=== PATIENT | female | born 1965 | race African-American/Black ===

== ENCOUNTER 2018-06-24 14:18 | Observation (INO) | payer BC, SELFPAY ==
[2018-06-24 14:50] LABS: #Basophils 0.1 thou/uL (0.0-0.2); #Eosinphils 0.2 thou/uL (0.0-0.7); #Lymphocytes 2.9 thou/uL (1.20-3.40); #Monocytes 0.4 thou/uL (0.11-0.59); #Neutrophils 2.5 thou/uL (1.40-6.50); %Basophils 1.4 % (0.0-1.0); %Eosinophils 3.4 % (0.0-10.0); %Lymphocytes 47.4 % (21.0-51.0); %Monocytes 7.2 % (0.0-10.0); %Neutrophils 40.6 % (42.0-75.0); Hemoglobin 13.5 g/dL (12.0-16.0); Mean Corpuscular HGB CONC 31.8 g/dL (32.0-36.0); Mean Corpuscular Hemoglobin 30.9 pg (27.0-31.0); Mean Corpuscular Volume 97.1 fL (78.0-98.0); Mean Platelet Volume 9.1 fL (7.4-10.4); Platelet Count 300 thou/uL (130-400); RBC Distribution Width 12.4 % (11.5-14.5); Red Blood Cell (RBC) Count 4.37 mill/uL (4.20-5.40); White Blood Cell (WBC) Count 6.1 thou/uL (4.8-10.8)
--- NOTE | 2018-06-24 15:02 | RAD ---
CHEST 1 VIEW: Date: 06/24/18 HISTORY: Chest pain. COMPARISON: 08/26/12. FINDINGS: Cardiac silhouette is magnified by projection. Pulmonary vasculature unremarkable. Mediastinum is mid line. No lobar consolidation or evidence of pneumothorax. potline monitor leads overlie the chest. IMPRESSION: No active cardiopulmonary abnormalities are demonstrated. POS: [facility]
[2018-06-24 15:10] LABS: ALT (SGPT) 14 U/L (8-55); AST (SGOT) 12 U/L (5-34); Albumin 3.6 g/dL (3.5-5.0); Alkaline Phosphatase 75 U/L (40-150); Anion Gap 11 mmol/L (10-20); BUN (Urea Nitrogen) 17 mg/dL (9.8-20.1); Bilirubin, Total 0.3 mg/dL (0.2-1.2); CK (CPK) 152 U/L (29-168); Calc. Creatinine Clearance 0 mL/min (70-130); Calcium 9.2 mg/dL (7.8-10.44); Carbon Dioxide 28 mmol/L (22-29); Chloride 105 mmol/L (98-107); Estimated GFR-MDRD 61; Globulin 3.6 g/dL (2.4-3.5); Glucose 150 mg/dL (70-105); Potassium 4.7 mmol/L (3.5-5.1); Protein, Total 7.2 g/dL (6.0-8.3); Sodium 139 mmol/L (136-145)
[2018-06-24 15:14] LABS: CKMB 2.7 ng/mL (0-6.6); Troponin I Less than 0.010 ng/mL (< 0.028)
[2018-06-24] MEDS ORDERED: Nitroglycerin 2% Ointment 1 INCH/1 GM Packet ONE (15:48)
[2018-06-24 18:53] LABS: Troponin I Less than 0.010 ng/mL (< 0.028)
[2018-06-24] MEDS ORDERED: Acetaminophen 325 MG TAB PO PRN (20:57)
[2018-06-24 21:10] LABS: Troponin I Less than 0.010 ng/mL (< 0.028)
[2018-06-24] MEDS ORDERED: hydrALAZINE 20 MG/ML VIAL SLOW IVP PRN (21:28)
[2018-06-24] MEDS ORDERED: Ondansetron PF 4 MG/2 ML Vial IVP PRN (21:28)
[2018-06-24] MEDS ORDERED: Acetaminophen 500 MG TAB PO PRN (21:28)
[2018-06-24] MEDS ORDERED: Ondansetron ODT 4 MG TAB PO PRN (21:28)
[2018-06-24 21:35] VITALS: BMI 30.7
[2018-06-24] MEDS ORDERED: Famotidine 20 MG TAB PO SCH (21:45)
[2018-06-24] MEDS ORDERED: Amlodipine 10 MG TAB PO SCH (22:30)
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
[2018-06-25 04:44] LABS: Anion Gap 7 mmol/L (10-20); BUN (Urea Nitrogen) 16 mg/dL (9.8-20.1); Calc. Creatinine Clearance 80 mL/min (70-130); Calcium 8.7 mg/dL (7.8-10.44); Carbon Dioxide 28 mmol/L (22-29); Cardiac Risk 6.7 (Less than 4.5); Chloride 107 mmol/L (98-107); Cholesterol 253 mg/dl (< 200 Desired); Estimated GFR-MDRD 64; Glucose 203 mg/dL (70-105); HDL Cholesterol 38 mg/dL (>60 Neg Risk); LDL Cholesterol, Calculated 183 mg/dL; Potassium 4.4 mmol/L (3.5-5.1); Sodium 138 mmol/L (136-145); Triglycerides 160 mg/dL (Less than 150)
[2018-06-25] MEDS ORDERED: Aspirin 325 MG TAB PO SCH (08:00)
[2018-06-25] MEDS ORDERED: Famotidine 20 MG TAB PO SCH (09:00)
[2018-06-25] MEDS ORDERED: Regadenoson 0.4 MG/5 ML SYRINGE ONE (10:25)
[2018-06-25 15:27] VITALS: BP 116/65; TEMP 98.4
--- NOTE | 2018-06-25 15:40 | NM ---
NUCLEAR MEDICINE CARDIAC STRESS TEST WITH EJECTION FRACTION: HISTORY: Chest pain. Hypertension. Diabetes. Dyslipidemia. COMPARISON: None. TECHNIQUE: Stress and rest was performed after the intravenous administration of 29 and 9 mCi technetium-99m, re spectively. FINDINGS: Normal left ventricular uptake of radiotracer. No scar or ischemia. Normal wall motion. Ejection fraction 68%. IMPRESSION: Normal nuclear medicine cardiac stress test and ejection fraction. POS: [facility]
[2018-06-25] MEDS ORDERED: Rosuvastatin 10 MG TAB PO SCH (21:00)
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
== END 2018-06-25 18:18 | disposition home or self-care (01) ==
LOC: ERS 14:18 → 2SW 16:30
PROVIDERS: ADMIT Family Medicine; ATTEND Family Medicine
DX: R07.89 Other chest pain (principal); E11.9 Type 2 diabetes mellitus without complications; E78.5 Hyperlipidemia, unspecified; I10 Essential (primary) hypertension; Z79.4 Long term (current) use of insulin; Z79.82 Long term (current) use of aspirin; Z79.899 Other long term (current) drug therapy
CPT/HCPCS: 36415; 36416; 71045; 78452; 80048; 80053; 80061; 82550; 82553; 84484; 85025; 93005; 93017; 94760; A9500; G0378; J2785

== ENCOUNTER 2018-06-30 14:58 | Outpatient (CLI) | payer BC | END 2018-06-30 14:59 | disposition home or self-care (01) | LOC: BICMAMMO 14:58 | PROVIDERS: ATTEND Internal Medicine | DX: Z12.31 Encounter for screening mammogram for malignant neoplasm of breast (principal) | CPT/HCPCS: 77063; 77067 ==

== ENCOUNTER 2018-08-01 09:13 | Outpatient (CLI) | payer BC ==
--- NOTE | 2018-08-01 11:26 | RAD ---
ESOPHOGRAM AIR CONTRAST: Indication: Dysphagia, unspecified. FINDINGS: Swallowing mechanism appears normal. Hypopharynx is normal. Esophagus is unremarkable. No evidence of diaphragmatic hernia. No reflux identified. Mild narrowing at the EG junction is noted, however, a 1 2 mm barium tablet passes through this junction without difficulty. IMPRESSION: Unremarkable esophogram. POS: [facility]
== END 2018-08-01 09:14 | disposition home or self-care (01) ==
LOC: RAD 09:13
PROVIDERS: ATTEND Specialist
DX: R13.10 Dysphagia, unspecified (principal)
CPT/HCPCS: 74220